=== PATIENT | female | born 1980 | race Asian ===

== ENCOUNTER 2016-10-24 09:19 | Inpatient (IN) | payer MEDICAID ==
[~2016-10-24] VITALS: Ht 152.4 cm; Wt 40.8 kg
[2016-10-24 09:23] VITALS: BP_SYST 137
[2016-10-24] MEDS ORDERED: MAG HYDROX/AL HYDROX/SIMETH 30 ML, BELLADONNA ALKALOIDS/PHENOBARB 10 ML, LIDOCAINE VISC... PO ONE ×3 (10:15)
[2016-10-24 10:23] LABS: BASOPHILS % (AUTO) 0.3 % (0.0-2.0); EOSINOPHILS % (AUTO) 0.2 % (0.0-4.0); HEMATOCRIT 41.7 % (36-48); HEMOGLOBIN 13.8 g/dL (12.0-16.0); MEAN CORPUSCULAR HEMOGLOBIN 31 pg (27-31); MEAN CORPUSCULAR HGB CONC 33 % (32-36); MEAN CORPUSCULAR VOLUME 94 fL (79.0-98.0); MONOCYTES # (AUTO) 0.8 K/uL (0.0-1.0); MONOCYTES % (AUTO) 5.5 % (1.7-9.3); NEUTROPHILS # (AUTO) 12.7 K/uL (1.8-7.7); PLATELET COUNT (AUTO) 239 K/uL (130-430); RED BLOOD CELL COUNT(AUTO) 4.46 MIL/uL (4.2-6.2); RED CELL DISTRIBUTION WIDTH 12.8 % (9.0-15.0); WHITE BLOOD COUNT (AUTO) 14.5 K/uL (4.8-10.8)
[2016-10-24 10:29] LABS: CALCIUM 8.3 mg/dL (8.4-11.0); CREATININE 0.78 mg/dL (0.55-1.30); POTASSIUM 3.2 mmol/L (3.5-5.1)
[2016-10-24 10:34] LABS: PROTHROMBIN TIME 10.9 SECS (9.5-12.5)
[2016-10-24 10:36] LABS: ALBUMIN 4.4 g/dL (3.4-4.8); TOTAL BILIRUBIN 0.5 mg/dL (0.0-1.0)
[2016-10-24 11:00] LABS: CKMB RELATIVE INDEX 3.7 (0.0-2.9); CREATINE KINASE MB 8.6 ng/mL (0-3.6)
[2016-10-24] MEDS ORDERED: ASPIRIN 81 MG TAB.CHEW PO ONE (11:00)
[2016-10-24] MEDS ORDERED: HYDROcodone/ACETAMIN 10-325 MG TAB PO ONE (11:15)
[2016-10-24 11:35] LABS: BILIRUBIN,URINE NEGATIVE (NEGATIVE); BLOOD, URINE 2+ (NEGATIVE); CLARITY/URINE CLEAR (CLEAR); COLOR,URINE YELLOW (YELLOW); GLUCOSE,URINE TRACE (NEGATIVE); KETONES,URINE TRACE (NEGATIVE); LEUKOCYTE ESTERASE ,URINE NEGATIVE (NEGATIVE); NITRITE, URINE NEGATIVE (NEGATIVE); PROTEIN URINE NEGATIVE (NEGATIVE); UROBILINOGEN,URINE 0.2 (0.2-1.0)
[2016-10-24 11:36] LABS: RBC,URINE 0-3 /HPF (0-3); WBC,URINE 0-3 /HPF (0-3)
[2016-10-24 11:37] LABS: BACTERIA,URINE MODERATE /HPF (None Seen)
[2016-10-24 11:47] VITALS: BP_SYST 134
[2016-10-24 12:05] VITALS: BP_SYST 132
[2016-10-24] MEDS: D5/0.45 NS 1,000 ML IV SCH (12:05)
[2016-10-24] MEDS: MORPHINE 2 MG/ML INJ. SYRINGE IVP PRN (14:06)
[2016-10-24] MEDS: ONDANSETRON HCL 4 MG/2 ML VIAL IVP PRN ×2 (14:06→20:44)
[2016-10-24 15:41] VITALS: BP_SYST 97
[2016-10-24 15:45] VITALS: BP_SYST 95
[2016-10-24] MEDS ORDERED: HYDROmorphone 1 MG INJ. 1 MG/ML AMPUL IM PRN (16:30)
[2016-10-24 16:51] LABS: BARBITURATE, URINE NEGATIVE (NEG <=200); BENZODIAZEPINE, URINE NEGATIVE (NEG <=150); CANNABINOID, URINE POSITIVE (NEG <=50); COCAINE, URINE NEGATIVE (NEG <=150); METHAMPHETAMINES SCREEN,URINE NEGATIVE (NEG <=500); OPIATE, URINE POSITIVE (NEG <=100); PHENCYCLIDINE SCREEN,URINE NEGATIVE (NEG <=25); UR TRICYCLIC ANTIDEPRESSANTS NEGATIVE (NEG <=300); URINE AMPHETAMINE NEGATIVE (NEG <=500); URINE METHADONE NEGATIVE (NEG <=200); URINE OXYCODONE SCREEN NEGATIVE (NEG <=100); URINE PROPOXYPHENE SCREEN NEGATIVE (NEG <=300)
[2016-10-24] MEDS: HYDROmorphone 1 MG INJ. 1 MG/ML AMPUL IV PRN (19:00)
[2016-10-24 20:57] VITALS: BP_SYST 121
[2016-10-25] VITALS (7 sets, daily range): BP systolic 96–128
[2016-10-25] MEDS: D5/0.45 NS 1,000 ML IV SCH ×3 (00:34→23:59)
[2016-10-25] MEDS: HYDROmorphone 1 MG INJ. 1 MG/ML AMPUL IV PRN ×3 (00:35→17:57)
[2016-10-25] MEDS: ONDANSETRON HCL 4 MG/2 ML VIAL IVP PRN ×2 (02:35→21:11)
[2016-10-25 07:24] LABS: BASOPHILS # (AUTO) 0.1 K/uL (0.0-0.2); BASOPHILS % (AUTO) 0.8 % (0.0-2.0); EOSINOPHILS # (AUTO) 0.3 K/uL (0.0-0.4); EOSINOPHILS % (AUTO) 3.1 % (0.0-4.0); HEMATOCRIT 37.3 % (36-48); HEMOGLOBIN 12.6 g/dL (12.0-16.0); LYMPHOCYTES # (AUTO) 1.8 K/uL (1.0-5.5); LYMPHOCYTES % (AUTO) 19.9 % (20.5-51.5); MEAN CORPUSCULAR HEMOGLOBIN 32 pg (27-31); MEAN CORPUSCULAR HGB CONC 34 % (32-36); MEAN CORPUSCULAR VOLUME 94 fL (79.0-98.0); MONOCYTES # (AUTO) 1.1 K/uL (0.0-1.0); NEUTROPHILS # (AUTO) 5.9 K/uL (1.8-7.7); NEUTROPHILS % (AUTO) 64.2 % (40.0-70.0); PLATELET COUNT (AUTO) 197 K/uL (130-430); RED BLOOD CELL COUNT(AUTO) 3.98 MIL/uL (4.2-6.2); RED CELL DISTRIBUTION WIDTH 12.8 % (9.0-15.0)
[2016-10-25 07:50] LABS: WHITE BLOOD COUNT (AUTO) 9.2 K/uL (4.8-10.8)
[2016-10-25 08:25] LABS: ALBUMIN 3.6 g/dL (3.4-4.8); CALCIUM 7.6 mg/dL (8.4-11.0); CREATININE 0.89 mg/dL (0.55-1.30); TOTAL BILIRUBIN 0.4 mg/dL (0.0-1.0)
[2016-10-25 08:48] LABS: POTASSIUM 2.8 mmol/L (3.5-5.1)
[2016-10-25] MEDS ORDERED: POTASSIUM CHLORIDE 20 MEQ TAB.PRT.SR PO ONE (09:00)
[2016-10-25] MEDS ORDERED: FAMOTIDINE 20 MG TABLET PO ONE (10:45)
[2016-10-25] MEDS: FAMOTIDINE 20 MG TABLET PO SCH (21:11)
[2016-10-26 03:51] VITALS: BP_SYST 118
[2016-10-26] MEDS: HYDROmorphone 1 MG INJ. 1 MG/ML AMPUL IV PRN ×4 (04:31→23:01)
[2016-10-26 07:00] LABS: CALCIUM 7.6 mg/dL (8.4-11.0); CREATININE 0.87 mg/dL (0.55-1.30)
[2016-10-26 07:30] LABS: POTASSIUM 2.8 mmol/L (3.5-5.1)
[2016-10-26] MEDS ORDERED: MEPERIDINE HCL/PF 100 MG/ML AMP ONE (07:36)
[2016-10-26] MEDS ORDERED: MIDAZOLAM HCL 5 MG/5 ML VIAL ONE (07:37)
[2016-10-26] MEDS ORDERED: DIPHENHYDRAMINE INJ 50 MG/ML VIAL ONE ×2 (07:37→08:45)
[2016-10-26 08:00] VITALS: BP_SYST 124
[2016-10-26] MEDS ORDERED: POTASSIUM CHLORIDE 40 MEQ in NS 250 ML IV ONE (08:00)
[2016-10-26] MEDS: D5/0.45 NS 1,000 ML IV SCH ×2 (08:10→13:30)
[2016-10-26] MEDS: MIDAZOLAM HCL 5 MG/5 ML VIAL ONE ×4 (08:49→08:55)
[2016-10-26] MEDS: FAMOTIDINE 20 MG TABLET PO SCH ×2 (09:00→21:10)
[2016-10-26 12:17] VITALS: BP_SYST 120
[2016-10-26] MEDS ORDERED: REGADENOSON 0.4 MG/5 ML SYRINGE IVP ONE (14:00)
[2016-10-26 15:00] VITALS: BP_SYST 113
[2016-10-26] MEDS: ONDANSETRON HCL 4 MG/2 ML VIAL IVP PRN (15:41)
[2016-10-26] MEDS ORDERED: FAMOTIDINE PF 20 MG/2 ML VIAL IVP ONE (16:15)
[2016-10-26 17:04] VITALS: BP_SYST 130
[2016-10-26] MEDS: MORPHINE 2 MG/ML INJ. SYRINGE IVP PRN (17:22)
[2016-10-26] MEDS ORDERED: MILK OF MAGNESIA 30 ML UDC PO ONE (17:45)
[2016-10-26 18:31] VITALS: BP_SYST 154
[2016-10-26] MEDS ORDERED: HYDROmorphone 1 MG INJ. 1 MG/ML AMPUL IVP ONE (18:45)
[2016-10-27 00:33] VITALS: BP_SYST 119
[2016-10-27] MEDS: HYDROmorphone 1 MG INJ. 1 MG/ML AMPUL IV PRN ×2 (02:57→07:00)
[2016-10-27 03:30] VITALS: BP_SYST 100
[2016-10-27 06:32] LABS: ALBUMIN 3.6 g/dL (3.4-4.8); BASOPHILS # (AUTO) 0.1 K/uL (0.0-0.2); BASOPHILS % (AUTO) 0.8 % (0.0-2.0); CREATININE 0.66 mg/dL (0.55-1.30); EOSINOPHILS # (AUTO) 0.3 K/uL (0.0-0.4); EOSINOPHILS % (AUTO) 2.3 % (0.0-4.0); HEMATOCRIT 40.5 % (36-48); HEMOGLOBIN 13.7 g/dL (12.0-16.0); LYMPHOCYTES # (AUTO) 2.8 K/uL (1.0-5.5); LYMPHOCYTES % (AUTO) 25.5 % (20.5-51.5); MEAN CORPUSCULAR HEMOGLOBIN 32 pg (27-31); MEAN CORPUSCULAR HGB CONC 34 % (32-36); MEAN CORPUSCULAR VOLUME 95 fL (79.0-98.0); MONOCYTES % (AUTO) 9.4 % (1.7-9.3); NEUTROPHILS # (AUTO) 6.8 K/uL (1.8-7.7); PLATELET COUNT (AUTO) 240 K/uL (130-430); RED BLOOD CELL COUNT(AUTO) 4.29 MIL/uL (4.2-6.2); RED CELL DISTRIBUTION WIDTH 12.6 % (9.0-15.0); TOTAL BILIRUBIN 0.4 mg/dL (0.0-1.0)
[2016-10-27 06:40] LABS: POTASSIUM 2.9 mmol/L (3.5-5.1)
[2016-10-27] MEDS ORDERED: LACTULOSE 20 GM/30 ML UDC PO ONE (07:45)
[2016-10-27] MEDS ORDERED: POTASSIUM CHLORIDE 20 MEQ TAB.PRT.SR PO ONE ×2 (07:45→11:00)
[2016-10-27 08:25] VITALS: BP_SYST 129
[2016-10-27] MEDS: FAMOTIDINE 20 MG TABLET PO SCH (09:09)
[2016-10-27] MEDS ORDERED: HYDR2TAB34 PO (11:45)
[2016-10-27] MEDS ORDERED: FAMO20TA8 PO (11:45)
[2016-10-27 11:46] VITALS: BP_SYST 119
[2016-10-27 12:28] VITALS: BP_SYST 119
== END 2016-10-27 12:05 | disposition home or self-care (01) | DRG 241 ==
LOC: SED 09:19 → STU 11:30
PROVIDERS: ADMIT Family Medicine; ATTEND Family Medicine
PROC: 0DB68ZX Excision of Stomach, Via Natural or Artificial Opening Endoscopic, Diagnostic (ICD-10-PCS; principal; 2016-10-24)
PROC: 0DB98ZX Excision of Duodenum, Via Natural or Artificial Opening Endoscopic, Diagnostic (ICD-10-PCS; 2016-10-24)
DX: K29.70 Gastritis, unspecified, without bleeding (principal); E44.0 Moderate protein-calorie malnutrition; R07.89 Other chest pain; A08.4 Viral intestinal infection, unspecified; E87.6 Hypokalemia; F12.90 Cannabis use, unspecified, uncomplicated; D72.829 Elevated white blood cell count, unspecified; K21.9 Gastro-esophageal reflux disease without esophagitis; Z87.891 Personal history of nicotine dependence; Z82.49 Family history of ischemic heart disease and other diseases of the circulatory system; E83.51 Hypocalcemia
CPT/HCPCS: 36415; 43239; 71010; 76700-TC; 80048; 80053; 80307; 81000-TC; 82150-TC; 82550-TC; 82553-TC; 83690-TC; 84484; 84703; 85025; 85379; 85610-TC; 85730-TC; 87081; 87086; 88305; 88312; 88313; 93005; 93017; 93306; 99285; A9500; J1170; J1200; J2001; J2175; J2250; J2270; J2405; J2785; J3480; J3490; J7050

== ENCOUNTER 2016-11-06 07:19 | Emergency (ER) | payer MEDICAID ==
[~2016-11-06] VITALS: Ht 152.4 cm; Wt 38.6 kg
[~2016-11-06 07:19] MED LIST: FAMO20TA8 PO; HYDR2TAB34 PO
--- NOTE | 2016-11-06 07:19 | NUR ---
Pt was brought to bed 8 with complaints of chest pain 10/ with SOB, pt states it is sharp pain in the center of the chest that does not radiate since this morning at 0400. Pt has n/v, denies fever and diarrhea. Pt was able to ambulate into the ER with no noted difficulty. Pt is able to communicate in full sentences and has o2 sat of 100% on room air. No other injuries/complaints per pt or noted.
[2016-11-06] MEDS ORDERED: NACL 0.9% 1,000 ML IV ONE ×2 (07:21→13:00)
[2016-11-06 07:23] VITALS: BP_SYST 154
[2016-11-06] MEDS ORDERED: ONDANSETRON HCL 4 MG/2 ML VIAL IVP ONE (07:30)
[2016-11-06] MEDS ORDERED: ASPIRIN 81 MG TAB.CHEW PO ONE (07:30)
[2016-11-06] MEDS ORDERED: MORPHINE 2 MG/ML INJ. SYRINGE IVP ONE (07:30)
[2016-11-06 07:42] LABS: BASOPHILS # (AUTO) 0.1 K/uL (0.0-0.2); BASOPHILS % (AUTO) 1.2 % (0.0-2.0); EOSINOPHILS # (AUTO) 0.3 K/uL (0.0-0.4); EOSINOPHILS % (AUTO) 3.7 % (0.0-4.0); HEMATOCRIT 47.5 % (36-48); HEMOGLOBIN 15.3 g/dL (12.0-16.0); LYMPHOCYTES # (AUTO) 2.5 K/uL (1.0-5.5); MEAN CORPUSCULAR HEMOGLOBIN 30 pg (27-31); MEAN CORPUSCULAR HGB CONC 32 % (32-36); MEAN CORPUSCULAR VOLUME 93 fL (79.0-98.0); MONOCYTES # (AUTO) 0.5 K/uL (0.0-1.0); MONOCYTES % (AUTO) 5.7 % (1.7-9.3); NEUTROPHILS # (AUTO) 5.5 K/uL (1.8-7.7); NEUTROPHILS % (AUTO) 61.4 % (40.0-70.0); PLATELET COUNT (AUTO) 286 K/uL (130-430); RED BLOOD CELL COUNT(AUTO) 5.11 MIL/uL (4.2-6.2); RED CELL DISTRIBUTION WIDTH 12.7 % (9.0-15.0); WHITE BLOOD COUNT (AUTO) 8.9 K/uL (4.8-10.8)
--- NOTE | 2016-11-06 07:43 | NUR ---
Pain medication and aspirin were given to the pt, no noted adverse reaction, will continue to monitor. Dr Dodson wanted the NS to be bolused, which was done.
--- NOTE | 2016-11-06 07:59 | NUR ---
RHIANNA Conklin at bedside examining patient.
[2016-11-06] MEDS ORDERED: PROCHLORPERAZINE EDISYLATE 10 MG/2 ML VIAL IVP ONE (08:00)
[2016-11-06] MEDS ORDERED: NITROGLYCERIN 0.4 MG TAB.SUBL SL ONE ×2 (08:00→08:02)
[2016-11-06] MEDS ORDERED: PANTOPRAZOLE SODIUM 40 MG/VIAL (PROTONIX) IVP ONE (08:00)
[2016-11-06] MEDS ORDERED: LORazepam 2 MG/ML VIAL (FOR ER USE) IVP ONE ×2 (08:00→11:30)
[2016-11-06 08:01] LABS: ANION GAP 14 (5-15); CALCIUM 9.7 mg/dL (8.4-11.0); CHLORIDE 104 mmol/L (98-107); CREATININE 0.95 mg/dL (0.55-1.30); GLUCOSE 138 mg/dL (70-99); POTASSIUM 3.9 mmol/L (3.5-5.1); SODIUM SERUM 143 mmol/L (136-145); UREA NITROGEN, BLOOD 10 mg/dL (8-21)
[2016-11-06 08:04] LABS: GFR AFRICAN AMERICAN 86 mL/min (>90)
--- NOTE | 2016-11-06 08:07 | NUR ---
Pt was given more nausea medication, nitro and protonix, pt tolerated well, no noted adverse reaction, will continue to monitor.
[2016-11-06 08:10] LABS: ALANINE AMINOTRANSFERASE 20 U/L (12-78); ALBUMIN 4.6 g/dL (3.4-4.8); ASPARTATE AMINOTRANSFERASE 23 U/L (10-37); TOTAL BILIRUBIN 0.4 mg/dL (0.0-1.0)
[2016-11-06 08:29] LABS: CHOLESTEROL 133 mg/dL (<200); HDL CHOLESTEROL 55 mg/dL (>55); LDL CHOLESTEROL 79 mg/dL (<100); TRIGLYCERIDES 73 mg/dL (30-150)
[2016-11-06 08:46] LABS: INR 1.1 (0.8-1.2); PROTHROMBIN TIME 11.6 SECS (9.5-12.5)
[2016-11-06] MEDS ORDERED: cloNIDine HCL 0.1 MG TABLET PO ONE (09:00)
[2016-11-06] MEDS ORDERED: HALOPERIDOL LACTATE 5 MG/ML VIAL IVP ONE (09:00)
--- NOTE | 2016-11-06 09:12 | NUR ---
Medication was given, no noted adverse reaction, will continue to monitor.
--- NOTE | 2016-11-06 09:27 | NUR ---
Pt is resting comfortably in bed with no noted distress or discomfort, states "pain is feeling better"
--- NOTE | 2016-11-06 09:58 | NUR ---
Pt ambulated to restroom steady gait. Urine specimen collected.
--- NOTE | 2016-11-06 10:10 | NUR ---
Pt went to radiology in stable condition
[2016-11-06] MEDS ORDERED: IOHEXOL 350 mgI/mL, 150 ML INFUS..BTL IV ONE (10:12)
--- NOTE | 2016-11-06 10:31 | NUR ---
Pt returned from radiology in stable condition
[2016-11-06 11:02] LABS: BARBITURATE, URINE NEGATIVE (NEG <=200); BENZODIAZEPINE, URINE NEGATIVE (NEG <=150); CANNABINOID, URINE POSITIVE (NEG <=50); COCAINE, URINE NEGATIVE (NEG <=150); METHAMPHETAMINES SCREEN,URINE NEGATIVE (NEG <=500); OPIATE, URINE POSITIVE (NEG <=100); PHENCYCLIDINE SCREEN,URINE NEGATIVE (NEG <=25); UR TRICYCLIC ANTIDEPRESSANTS NEGATIVE (NEG <=300); URINE AMPHETAMINE NEGATIVE (NEG <=500); URINE METHADONE NEGATIVE (NEG <=200); URINE OXYCODONE SCREEN NEGATIVE (NEG <=100); URINE PROPOXYPHENE SCREEN NEGATIVE (NEG <=300)
--- NOTE | 2016-11-06 11:22 | NUR ---
Pt is ambulating to the restroom in stable condition with no noted distress or discomfort.
[2016-11-06] MEDS ORDERED: traMADol HCL HCL 50 MG TABLET (ULTRAM) PO ONE (11:30)
--- NOTE | 2016-11-06 12:15 | NUR ---
Pt is resting in bed comfortably with no noted distress or discomfort. Will continue to monitor.
--- NOTE | 2016-11-06 13:10 | NUR ---
Pt is resting comfortably in bed with no noted distress or discomfort. I tried calling the pt's spouse and there was no answer, pt states that he sleeps all morning so she would call an Uber to take her home, Dr Streeter is aware and he states that is fine. Pt is getting another liter of hyrdation and then the pt may go home. Pt is aware.
--- NOTE | 2016-11-06 14:10 | NUR ---
Patient given written and verbal discharge instructions and verbalizes understanding. ER MD discussed with patient the results and treatment provided. Patient in stable condition. ID arm band removed. IV catheter removed intact and dressing applied, no active bleeding. Rx of protonix and tramadol given. Patient educated on pain management and to follow up with PMD. Pain Scale 4. Dr Streeter is aware and pain medication was given here and a prescription for home. Pt states will take medication at home. Opportunity for questions provided and answered.
[2016-11-06 14:13] VITALS: BP_SYST 154
== END 2016-11-06 14:13 | disposition home or self-care (01) ==
LOC: SED 07:19
DX: K29.50 Unspecified chronic gastritis without bleeding (principal); F11.23 Opioid dependence with withdrawal
CPT/HCPCS: 36415; 71010; 71275; 80053; 80061; 80307; 81025; 84484; 85025; 85379; 85610; 85730; 93005; 96361; 96372; 96374; 96375; 96376; 99285; C9113; J0780; J1630; J2060; J2270; J2405; J7030; Q9967

== ENCOUNTER 2016-11-08 03:10 | Emergency (ER) | payer MEDICAID ==
[~2016-11-08] VITALS: Ht 152.4 cm; Wt 48.1 kg
[2016-11-08 03:10] VITALS: BP_SYST 157
[2016-11-08] MEDS ORDERED: NACL 0.9% 1,000 ML IV ONE (04:06)
[2016-11-08] MEDS ORDERED: MAG HYDROX/AL HYDROX/SIMETH 30 ML, BELLADONNA ALKALOIDS/PHENOBARB 10 ML, LIDOCAINE VISC... PO ONE ×3 (04:15)
[2016-11-08] MEDS ORDERED: PANTOPRAZOLE SODIUM 40 MG/VIAL (PROTONIX) IVP ONE (04:15)
[2016-11-08] MEDS ORDERED: ONDANSETRON HCL 4 MG/2 ML VIAL IVP ONE (04:15)
[2016-11-08 04:28] LABS: BILIRUBIN,URINE 1+ (NEGATIVE); BLOOD, URINE 1+ (NEGATIVE); CLARITY/URINE CLOUDY (CLEAR); COLOR,URINE YELLOW (YELLOW); GLUCOSE,URINE NEGATIVE (NEGATIVE); KETONES,URINE 3+ (NEGATIVE); LEUKOCYTE ESTERASE ,URINE NEGATIVE (NEGATIVE); NITRITE, URINE NEGATIVE (NEGATIVE); PH,URINE 7.5 (5.0-8.0); PROTEIN URINE NEGATIVE (NEGATIVE); UROBILINOGEN,URINE 0.2 (0.2-1.0)
[2016-11-08 04:39] LABS: BASOPHILS # (AUTO) 0.1 K/uL (0.0-0.2); BASOPHILS % (AUTO) 0.7 % (0.0-2.0); EOSINOPHILS % (AUTO) 0.2 % (0.0-4.0); HEMATOCRIT 45.3 % (36-48); HEMOGLOBIN 14.9 g/dL (12.0-16.0); LYMPHOCYTES # (AUTO) 1.4 K/uL (1.0-5.5); LYMPHOCYTES % (AUTO) 15.6 % (20.5-51.5); MEAN CORPUSCULAR HEMOGLOBIN 30 pg (27-31); MEAN CORPUSCULAR HGB CONC 33 % (32-36); MEAN CORPUSCULAR VOLUME 93 fL (79.0-98.0); MONOCYTES # (AUTO) 0.4 K/uL (0.0-1.0); MONOCYTES % (AUTO) 4.7 % (1.7-9.3); NEUTROPHILS # (AUTO) 6.8 K/uL (1.8-7.7); NEUTROPHILS % (AUTO) 78.8 % (40.0-70.0); PLATELET COUNT (AUTO) 274 K/uL (130-430); RED BLOOD CELL COUNT(AUTO) 4.89 MIL/uL (4.2-6.2); RED CELL DISTRIBUTION WIDTH 12.5 % (9.0-15.0); WHITE BLOOD COUNT (AUTO) 8.7 K/uL (4.8-10.8)
[2016-11-08 04:44] LABS: BACTERIA,URINE FEW /HPF (None Seen); MUCUS,URINE 1+ /LPF (None Seen); URINE AMORPHOUS PHOSPHATES 2+ /HPF (None Seen)
[2016-11-08] MEDS ORDERED: MORPHINE 4 MG/ML INJ. SYRINGE IVP ONE (04:45)
[2016-11-08] MEDS ORDERED: DIPHENHYDRAMINE INJ 50 MG/ML VIAL IVP ONE (04:45)
[2016-11-08 04:54] LABS: CREATININE 0.74 mg/dL (0.55-1.30)
[2016-11-08 05:00] LABS: ALBUMIN 4.6 g/dL (3.4-4.8); TOTAL BILIRUBIN 0.4 mg/dL (0.0-1.0)
[2016-11-08 05:33] LABS: BARBITURATE, URINE NEGATIVE (NEG <=200); BENZODIAZEPINE, URINE POSITIVE (NEG <=150); CANNABINOID, URINE POSITIVE (NEG <=50); COCAINE, URINE NEGATIVE (NEG <=150); METHAMPHETAMINES SCREEN,URINE NEGATIVE (NEG <=500); OPIATE, URINE NEGATIVE (NEG <=100); PHENCYCLIDINE SCREEN,URINE NEGATIVE (NEG <=25); UR TRICYCLIC ANTIDEPRESSANTS NEGATIVE (NEG <=300); URINE AMPHETAMINE NEGATIVE (NEG <=500); URINE METHADONE NEGATIVE (NEG <=200); URINE OXYCODONE SCREEN NEGATIVE (NEG <=100); URINE PROPOXYPHENE SCREEN NEGATIVE (NEG <=300)
[2016-11-08 06:00] VITALS: BP_SYST 121
== END 2016-11-08 06:00 | disposition home or self-care (01) ==
LOC: SED 03:10
DX: K29.70 Gastritis, unspecified, without bleeding (principal); R07.89 Other chest pain
CPT/HCPCS: 36415; 71010; 80053; 80307; 81000; 83690; 84484; 85025; 93005; 96361; 96374; 96375; 99285; C9113; J1200; J2001; J2270; J2405; J7030

== ENCOUNTER 2016-11-11 20:55 | Inpatient (IN) | payer MEDICAID ==
[~2016-11-11] VITALS: Ht 152.4 cm; Wt 48.1 kg
--- NOTE | 2016-11-11 21:15 | NUR ---
Patient to ER bed 07 to gown for evaluation. Side rails up. Report given to NIECY Hernandez.
--- NOTE | 2016-11-11 21:20 | NUR ---
Patient brought in by self with son ambulated to bedside, crying and screaming. Complaining of Mid sternal chest pain starting today at 1800 constant pain of 10/10, non radiating as well as nausea and vomiting. Denies any shortness of breath or diarrhea. No other complaints/injuries per patient or as noted will continue to monitor.
--- NOTE | 2016-11-11 21:24 | NUR ---
RHIANNA Sneed at bedside examining patient.
[2016-11-11] MEDS ORDERED: DIPHENHYDRAMINE INJ 50 MG/ML VIAL IM ONE (21:30)
[2016-11-11] MEDS ORDERED: KETOROLAC TROMETHAMINE 30 MG VIAL IM ONE (21:30)
[2016-11-11] MEDS ORDERED: HALOPERIDOL LACTATE 5 MG/ML VIAL IM ONE ×2 (21:30→23:00)
[2016-11-11] MEDS ORDERED: ASPIRIN 325 MG TABLET PO ONE (21:30)
[2016-11-11] MEDS ORDERED: ONDANSETRON 4 MG ODT TAB PO ONE (21:30)
[2016-11-11 21:44] LABS: BARBITURATE, URINE POSITIVE (NEG <=200); CANNABINOID, URINE POSITIVE (NEG <=50)
[2016-11-11 21:45] LABS: BENZODIAZEPINE, URINE NEGATIVE (NEG <=150); COCAINE, URINE NEGATIVE (NEG <=150); METHAMPHETAMINES SCREEN,URINE NEGATIVE (NEG <=500); OPIATE, URINE NEGATIVE (NEG <=100); PHENCYCLIDINE SCREEN,URINE NEGATIVE (NEG <=25); UR TRICYCLIC ANTIDEPRESSANTS NEGATIVE (NEG <=300); URINE AMPHETAMINE NEGATIVE (NEG <=500); URINE METHADONE NEGATIVE (NEG <=200); URINE OXYCODONE SCREEN NEGATIVE (NEG <=100); URINE PROPOXYPHENE SCREEN NEGATIVE (NEG <=300)
[2016-11-11 21:59] LABS: BASOPHILS # (AUTO) 0.2 K/uL (0.0-0.2); EOSINOPHILS # (AUTO) 0.1 K/uL (0.0-0.4); EOSINOPHILS % (AUTO) 0.9 % (0.0-4.0); HEMATOCRIT 40.6 % (36-48); HEMOGLOBIN 13.7 g/dL (12.0-16.0); LYMPHOCYTES # (AUTO) 1.6 K/uL (1.0-5.5); LYMPHOCYTES % (AUTO) 13.4 % (20.5-51.5); MEAN CORPUSCULAR HEMOGLOBIN 31 pg (27-31); MEAN CORPUSCULAR HGB CONC 34 % (32-36); MEAN CORPUSCULAR VOLUME 93 fL (79.0-98.0); MONOCYTES # (AUTO) 0.4 K/uL (0.0-1.0); MONOCYTES % (AUTO) 3.6 % (1.7-9.3); NEUTROPHILS # (AUTO) 9.6 K/uL (1.8-7.7); NEUTROPHILS % (AUTO) 80.1 % (40.0-70.0); PLATELET COUNT (AUTO) 248 K/uL (130-430); RED BLOOD CELL COUNT(AUTO) 4.39 MIL/uL (4.2-6.2); RED CELL DISTRIBUTION WIDTH 12.4 % (9.0-15.0); WHITE BLOOD COUNT (AUTO) 11.9 K/uL (4.8-10.8)
[2016-11-11 22:03] LABS: CALCIUM 8.7 mg/dL (8.4-11.0); CREATININE 0.63 mg/dL (0.55-1.30)
--- NOTE | 2016-11-11 22:04 | NUR ---
Patient reports pain 10/10 30 minutes after administration of Toradol. No adverse reactions noted. Dr. Sneed notified. Patient screaming and crying in bed. Will continue to monitor.
[2016-11-11] MEDS ORDERED: POTASSIUM CHLORIDE 20 MEQ/PKT PACKET PO ONE (22:15)
[2016-11-11 22:18] LABS: ALBUMIN 4.1 g/dL (3.4-4.8); THYROID STIMULATING HORMONE 0.93 uIu/mL (0.34-4.82); TOTAL BILIRUBIN 0.3 mg/dL (0.0-1.0)
--- NOTE | 2016-11-11 22:32 | NUR ---
Patient complaining of pain in chest 10/[address] Sneed. Will wait for new orders.
[2016-11-11] MEDS ORDERED: traMADol HCL HCL 50 MG TABLET (ULTRAM) PO ONE (22:45)
[2016-11-11] MEDS ORDERED: MORPHINE 2 MG/ML INJ. SYRINGE IM ONE (23:15)
--- NOTE | 2016-11-11 23:39 | NUR ---
Patient awoken from asleep for assessment. Patient reports pain 10/10 60 minutes after administration of Ultram. Dr. Sneed notified. No adverse reactions noted. Will continue to monitor.
--- NOTE | 2016-11-11 23:51 | NUR ---
Patient awoken for pain assessment. Patient reports pain 10/10 30 minutes after administration of Morphine Sulfate. No adverse reactions noted. Will continue to monitor.
[2016-11-12] MEDS ORDERED: METOCLOPRAMIDE HCL 10 MG/2 ML VIAL IVP ONE (00:15)
--- NOTE | 2016-11-12 00:23 | NUR ---
Spoke to Dr. Archibald for admit orders. Dr. Archibald reports to hold admit until CT is done.
[2016-11-12] MEDS ORDERED: HYDROmorphone 1 MG INJ. 1 MG/ML AMPUL IVP ONE (00:30)
[2016-11-12] MEDS ORDERED: NACL 0.9% 1,000 ML IV ONE (00:30)
[2016-11-12] MEDS ORDERED: IOHEXOL 100 ML IV ONE (00:45)
--- NOTE | 2016-11-12 00:55 | NUR ---
Patient off unit for CT Scan.
--- NOTE | 2016-11-12 01:02 | NUR ---
Patient returned from CT Scan.
--- NOTE | 2016-11-12 02:13 | NUR ---
Patient is asleep. No acute distress noted. Vital signs within normal range.
--- NOTE | 2016-11-12 02:33 | NUR ---
Medication reconciliation completed with information provided by Patient. Any prior medication reconciliation on file was reviewed and corrected.
[2016-11-12] MEDS ORDERED: ONDANSETRON HCL 4 MG/2 ML VIAL IVP PRN (02:45)
[2016-11-12] MEDS ORDERED: MORPHINE 4 MG/ML INJ. SYRINGE IVP PRN (02:45)
--- NOTE | 2016-11-12 02:50 | NUR ---
Transfer to [facility]. IV present no sign or symptom of infiltration.
--- NOTE | 2016-11-12 02:53 | NUR ---
ADMISSION NOTE Received patient from ER via gurney. Patient admitted with diagnosis of GI UPSET. Patient is awake, alert, oriented X 4. Patient oriented to hospital room, call light, toileting, pain management and safety-teach back done. Patient informed that SHANKAR PEMBERTON will be her nurse and that their room number is 106A. Personal belongings checked and Belongings List documented. Call light reach.
--- NOTE | 2016-11-12 02:53 | NUR ---
Patient will be admitted to care of Dr. Archibald. Admitted to Medical Surgical unit. Will go to room 106 A. Belongings list completed. Summary report printed. Report will be given at bedside.
[2016-11-12 03:05] VITALS: BP_SYST 125
--- NOTE | 2016-11-12 03:19 | NUR ---
Consult Called Reason for consultation: Psych Consulting Physician: Thomas Will MD ([employer] production corrugator) Person who was notified: Erica Whyte by Dr. Archibald
[2016-11-12] MEDS: D5NS 1,000 ML IV SCH ×2 (03:25→13:54)
[2016-11-12] MEDS ORDERED: FLU VACC QS 2017-18(36MOS+)/PF 0.5 ML/SYR SYRINGE I.M. PRN (03:30)
[2016-11-12 04:01] VITALS: BP_SYST 125
--- NOTE | 2016-11-12 06:02 | NUR ---
paged paged for Dr Archibald, dialed . left a message on his voicemail.
[2016-11-12] MEDS: METOCLOPRAMIDE HCL 10 MG/2 ML VIAL IVP SCH ×3 (06:24→22:00)
--- NOTE | 2016-11-12 06:30 | NUR ---
pt.recieved via the er-dept.pt. admitting:s/s c/o chest/abdomen pain;discomfort.pt.presents stable status.i have initiated the iv fluids:via iv access;located lt.hand.pt.presents o2 room air;stable status.pt.had requested dilaudid for pain mgx. was paged. present upon the unit@[facility].i located and apprised of the pt's requests for dilaudid. conveyed to me that the will assess/discuss the issue w/ the pt.@the room.pt.presents npo dietary status.pt.has agreed to the administration flu vaccine.no requests@this hour.
[2016-11-12 07:06] LABS: BASOPHILS # (AUTO) 0.1 K/uL (0.0-0.2); BASOPHILS % (AUTO) 0.5 % (0.0-2.0); EOSINOPHILS # (AUTO) 0.1 K/uL (0.0-0.4); EOSINOPHILS % (AUTO) 0.5 % (0.0-4.0); HEMATOCRIT 39.9 % (36-48); HEMOGLOBIN 13.3 g/dL (12.0-16.0); LYMPHOCYTES % (AUTO) 15.1 % (20.5-51.5); MEAN CORPUSCULAR HEMOGLOBIN 31 pg (27-31); MEAN CORPUSCULAR HGB CONC 33 % (32-36); MEAN CORPUSCULAR VOLUME 93 fL (79.0-98.0); MONOCYTES # (AUTO) 0.6 K/uL (0.0-1.0); MONOCYTES % (AUTO) 4.9 % (1.7-9.3); NEUTROPHILS # (AUTO) 10.2 K/uL (1.8-7.7); PLATELET COUNT (AUTO) 230 K/uL (130-430); RED BLOOD CELL COUNT(AUTO) 4.28 MIL/uL (4.2-6.2); RED CELL DISTRIBUTION WIDTH 12.6 % (9.0-15.0)
--- NOTE | 2016-11-12 07:30 | NUR ---
am rounds: PATIENT SLEEPING DURING ROUNDS. IVF ON GOING AT LEFT HAND,CLEAN AND DRY. NPO INSTRUCTED.STABLE. CONTINUE TO MONITOR.
--- NOTE | 2016-11-12 07:37 | NUR ---
GI consult called: For Dr. Pelaez, regarding "int n,v," ordered by Dr. Archibald, spoke with Devorah.
[2016-11-12 07:40] LABS: ALBUMIN 3.5 g/dL (3.4-4.8); CALCIUM 8.1 mg/dL (8.4-11.0); CREATININE 0.49 mg/dL (0.55-1.30); POTASSIUM 3.5 mmol/L (3.5-5.1); TOTAL BILIRUBIN 0.3 mg/dL (0.0-1.0)
--- NOTE | 2016-11-12 08:30 | NUR ---
TOILET: PATIENT AMBULATED TO THE TOILET AND VOIDED. BACK TO HER BED.STABLE.
[2016-11-12 08:31] VITALS: BP_SYST 103
--- NOTE | 2016-11-12 10:00 | NUR ---
RN ROUNDING: PATIENT SLEEPING. NO NEEDS THIS TIME.
--- NOTE | 2016-11-12 12:21 | NUR ---
ROUNDS: PATIENT RESTING,WANTS TO STAY IN BED ,FELT DIZZY.NO PAIN MEDS GIVEN.INSTRUCTED PATIENT TO CALL WHEN GOING TO THE TOILET.CALL LIGHT WITH REACH.BED AT LOWEST POSITION AND LOCKED.
[2016-11-12 12:26] VITALS: BP_SYST 102
--- NOTE | 2016-11-12 14:25 | NUR ---
REGLAN: IV REGLAN REFUSED BY THE PATIENT. PATIENT STATED THAT SHE DOES NOT HAVE ANY NAUSEA AND VOMITING THIS TIME.
--- NOTE | 2016-11-12 16:16 | NUR ---
RN ROUNDING: RESTING. FAMILY AT BEDSIDE. NO COMPLAINED MADE.
[2016-11-12 16:40] VITALS: BP_SYST 106
--- NOTE | 2016-11-12 17:37 | NUR ---
GI ORDER: SPOKE WITH DR TRACY WITH ORDERS,PATIENT CAN HAVE FULL LIQUID DURING DINNER. CALLED [facility] AND INFORMED THE STAFF FOR NEW DIET ORDER.
--- NOTE | 2016-11-12 18:28 | NUR ---
closing notes: patient started on full liquid at dinner. no nausea and vomiting noted. continue to monitor.
[2016-11-12] MEDS: AMITRIPTYLINE HCL 10 MG TABLET (ELAVIL) PO SCH (19:00)
--- NOTE | 2016-11-12 19:53 | NUR ---
OPENING NOTES PATIENT IS A/OX 4. NO SIGNS OF DISTRESS. BREATHING IS NON LABORED. VITAL SIGNS ARE STABLE. PATIENT HAS NO COMPLAINTS OF CHEST PAIN. PATIENT REFUSED ORDERED AMITRIPYLINE HCL. PATIENT STATED THAT SHE DOESN'T WANT TO TAKE IT. PATIENT WAS EDUCATED ON THE MEDICATION AND REFUSED. BED ALARM IS ON.PATIENT INSTRUCTED TO CALL FOR ASSISTANCE. PATIENT VERBALIZED UNDERSTANDING. CALL LIGHT IS WITHIN REACH. WILL CONTINUE TO MONITOR.
--- NOTE | 2016-11-12 22:00 | NUR ---
PATIENT REFUSED MEDICATION PATIENT REFUSED 2200 REGLAN. PATIENT STATED THAT SHE DOESN'T NEED IT. PATIENT WAS EDUCATED ON THE MEDICATION. PATIENT REFUSED.
--- NOTE | 2016-11-12 22:55 | NUR ---
ROUNDS PATIENT IS IN BED SLEEPING COMFORTABLY. NO SIGNS OF DISTRESS. CALL LIGHT IS WITHIN REACH. BED ALARM IS ON. WILL CONTINUE TO MONITOR.
[2016-11-13 00:40] VITALS: BP_SYST 97
[2016-11-13] MEDS: D5NS 1,000 ML IV SCH (01:18)
--- NOTE | 2016-11-13 01:25 | NUR ---
PATIENT CARE PATIENT WAS GIVEN APPLE JUICE AND WATER. NO SIGNS OF DISTRESS. BREATHING IS NON LABORED. CALL LIGHT IS WITHIN REACH. SAFETY MEASURES ARE IN PLACE. PATIENT INSTRUCTED TO CALL FOR ASSISTANCE. PATIENT VERBALIZED UNDERSTANDING. WILL CONTINUE TO MONITOR.
--- NOTE | 2016-11-13 03:58 | NUR ---
ROUNDS PATIENT IS IN BED SLEEPING. NO SIGNS OF DISTRESS. BREATHING IS NON LABORED. CALL LIGHT IS WITHIN REACH. BED ALARM IS ON. WILL CONTINUE TO MONITOR.
[2016-11-13 04:00] VITALS: BP_SYST 92
[2016-11-13] MEDS: METOCLOPRAMIDE HCL 10 MG/2 ML VIAL IVP SCH (05:43)
--- NOTE | 2016-11-13 05:48 | NUR ---
PATIENT CARE PATIENT WAS GIVEN APPLE JUICE. PATIENT IS RESTING COMFORTABLY IN BED.
[2016-11-13] MEDS: AMITRIPTYLINE HCL 10 MG TABLET (ELAVIL) PO SCH (06:27)
--- NOTE | 2016-11-13 06:28 | NUR ---
PATIENT REFUSED MEDICATION PATIENT REFUSED SCHEDULE ELAVIL. PATIENT STATED THE SHE DOES NOT SUFFER FROM DEPRESSION OR ANXIETY. PATIENT WAS EDUCATED ON THE MEDICATION. PATIENT REFUSED.
--- NOTE | 2016-11-13 06:35 | NUR ---
GAS PAIN PATIENT STATED THAT SHE MID EPIGASTRIC PAIN. PATIENT STATED THAT SHE HASN'T PASSED GAS IN TWO DAYS. PATIENT WAS ENCOURAGED TO WALK THE UNIT. PATIENT WAS OFFERED AN ESCORT. PATIENT REFUSED. WILL GIVE PATIENT WARM TEA. PATIENT WAS ENCOURAGED TO DO BICYCLE EXERCISE IN EFFORT TO PASS GAS.
[2016-11-13 06:41] LABS: BASOPHILS % (AUTO) 0.8 % (0.0-2.0); EOSINOPHILS # (AUTO) 0.2 K/uL (0.0-0.4); EOSINOPHILS % (AUTO) 3.9 % (0.0-4.0); HEMATOCRIT 36.4 % (36-48); LYMPHOCYTES # (AUTO) 2.2 K/uL (1.0-5.5); LYMPHOCYTES % (AUTO) 38.4 % (20.5-51.5); MEAN CORPUSCULAR HEMOGLOBIN 31 pg (27-31); MEAN CORPUSCULAR HGB CONC 33 % (32-36); MEAN CORPUSCULAR VOLUME 93 fL (79.0-98.0); MONOCYTES # (AUTO) 0.6 K/uL (0.0-1.0); NEUTROPHILS # (AUTO) 2.8 K/uL (1.8-7.7); NEUTROPHILS % (AUTO) 46.9 % (40.0-70.0); PLATELET COUNT (AUTO) 215 K/uL (130-430); RED BLOOD CELL COUNT(AUTO) 3.89 MIL/uL (4.2-6.2); RED CELL DISTRIBUTION WIDTH 12.7 % (9.0-15.0); WHITE BLOOD COUNT (AUTO) 5.8 K/uL (4.8-10.8)
[2016-11-13 07:00] LABS: CALCIUM 7.7 mg/dL (8.4-11.0); CREATININE 0.49 mg/dL (0.55-1.30); POTASSIUM 3.6 mmol/L (3.5-5.1)
[2016-11-13 07:40] VITALS: BP_SYST 95
--- NOTE | 2016-11-13 07:45 | NUR ---
AM ROUNDS; PATIENT LYING ON THE BED,RESTING. VITAL SIGNS TAKEN,AFEBRILE AND STABLE. DENIES ANY PAIN. PATIENT JUST FINISHED HER BREAKFAST.NO NAUSEA AND VOMITING NOTED. CONTINUE TO OBSERVE.CALL LIGHT WITH IN REACH. BED AT LOWEST POSITION AND LOCKED.
--- NOTE | 2016-11-13 08:55 | NUR ---
AMA: PATIENT LEFT AGAINST MEDICAL ADVICE AND SIGNED THE FORM.PATIENT DOES NOT WANT TO WAIT FOR DR STODDARD,EVEN AFTER EXPLAINING TO HER.IV REMOVED BY THE PATIENT,NO BLEEDING NOTED ON THE SITE. CHARGE NURSE ROMEL ,ACCOMPANIED PATIENT TO THE LOBBY.
== END 2016-11-13 08:55 | disposition left against medical advice (07) | DRG 249 ==
LOC: SED 20:55 → SMU 11-12 02:34
PROVIDERS: ADMIT General Practice; ATTEND General Practice
DX: R11.2 Nausea with vomiting, unspecified (principal); F11.20 Opioid dependence, uncomplicated; K30 Functional dyspepsia; E87.6 Hypokalemia; F12.20 Cannabis dependence, uncomplicated; K21.9 Gastro-esophageal reflux disease without esophagitis; F41.1 Generalized anxiety disorder; F19.10 Other psychoactive substance abuse, uncomplicated; F32.9 Major depressive disorder, single episode, unspecified; Z53.21 Procedure and treatment not carried out due to patient leaving prior to being seen by health care provider; Z87.891 Personal history of nicotine dependence
CPT/HCPCS: 36415; 71010; 80048; 80053; 80307; 83690-TC; 83735-TC; 84443-TC; 84484; 85025; 85379; 87081; 96372; 96374; 99285; J1200; J1630; J1885; J2270; J2765; J7030; J7042; Q0162; Q9967

== ENCOUNTER 2016-11-13 18:38 | Emergency (ER) | payer MEDICAID ==
[~2016-11-13] VITALS: Ht 152.4 cm; Wt 48.1 kg
[2016-11-13 18:43] VITALS: BP_SYST 141
--- NOTE | 2016-11-13 18:47 | NUR ---
Pt placed to ER waiting room in stable condition.
[2016-11-13 19:34] LABS: BASOPHILS # (AUTO) 0.2 K/uL (0.0-0.2); EOSINOPHILS # (AUTO) 0.2 K/uL (0.0-0.4); EOSINOPHILS % (AUTO) 2.1 % (0.0-4.0); NEUTROPHILS # (AUTO) 8.6 K/uL (1.8-7.7)
[2016-11-13 19:38] LABS: BASOPHILS % (AUTO) 1.4 % (0.0-2.0); HEMATOCRIT 41.8 % (36-48); LYMPHOCYTES # (AUTO) 1.5 K/uL (1.0-5.5); LYMPHOCYTES % (AUTO) 13.8 % (20.5-51.5); MEAN CORPUSCULAR HEMOGLOBIN 31 pg (27-31); MEAN CORPUSCULAR HGB CONC 34 % (32-36); MEAN CORPUSCULAR VOLUME 93 fL (79.0-98.0); MONOCYTES # (AUTO) 0.6 K/uL (0.0-1.0); MONOCYTES % (AUTO) 5.4 % (1.7-9.3); NEUTROPHILS % (AUTO) 77.3 % (40.0-70.0); PLATELET COUNT (AUTO) 248 K/uL (130-430); RED BLOOD CELL COUNT(AUTO) 4.48 MIL/uL (4.2-6.2); RED CELL DISTRIBUTION WIDTH 12.5 % (9.0-15.0)
[2016-11-13 19:39] LABS: WHITE BLOOD COUNT (AUTO) 11.1 K/uL (4.8-10.8)
[2016-11-13 19:40] LABS: CREATININE 0.57 mg/dL (0.55-1.30); POTASSIUM 3.4 mmol/L (3.5-5.1)
[2016-11-13 19:45] LABS: ALBUMIN 3.9 g/dL (3.4-4.8); TOTAL BILIRUBIN 0.3 mg/dL (0.0-1.0)
--- NOTE | 2016-11-13 22:19 | NUR ---
Patient left without being seen. No further treatment provided. ER MD aware
== END 2016-11-13 22:14 | disposition left against medical advice (07) ==
LOC: SED 18:38
DX: R07.89 Other chest pain (principal); Z53.21 Procedure and treatment not carried out due to patient leaving prior to being seen by health care provider
CPT/HCPCS: 36415; 80053; 83690-TC; 85025; 99281

== ENCOUNTER 2016-11-15 17:52 | Inpatient (IN) | payer MEDICAID ==
[~2016-11-15] VITALS: Ht 152.4 cm; Wt 41.7 kg
[2016-11-15 18:05] VITALS: BP_SYST 149
[2016-11-15] MEDS ORDERED: ASPIRIN 325 MG TABLET PO ONE (19:00)
[2016-11-15 19:06] LABS: BASOPHILS % (AUTO) 0.1 % (0.0-2.0); EOSINOPHILS # (AUTO) 0.2 K/uL (0.0-0.4); EOSINOPHILS % (AUTO) 1.6 % (0.0-4.0); HEMATOCRIT 44.6 % (36-48); HEMOGLOBIN 14.6 g/dL (12.0-16.0); LYMPHOCYTES # (AUTO) 1.6 K/uL (1.0-5.5); LYMPHOCYTES % (AUTO) 11.9 % (20.5-51.5); MEAN CORPUSCULAR HEMOGLOBIN 30 pg (27-31); MEAN CORPUSCULAR HGB CONC 33 % (32-36); MEAN CORPUSCULAR VOLUME 93 fL (79.0-98.0); MONOCYTES # (AUTO) 0.7 K/uL (0.0-1.0); MONOCYTES % (AUTO) 5.4 % (1.7-9.3); PLATELET COUNT (AUTO) 271 K/uL (130-430); RED BLOOD CELL COUNT(AUTO) 4.82 MIL/uL (4.2-6.2); RED CELL DISTRIBUTION WIDTH 12.7 % (9.0-15.0); WHITE BLOOD COUNT (AUTO) 13.5 K/uL (4.8-10.8)
[2016-11-15 19:18] LABS: PROTHROMBIN TIME 10.6 SECS (9.5-12.5)
[2016-11-15 19:22] LABS: CALCIUM 9.4 mg/dL (8.4-11.0); CREATININE 0.75 mg/dL (0.55-1.30); POTASSIUM 3.4 mmol/L (3.5-5.1)
[2016-11-15 19:26] LABS: ALBUMIN 4.4 g/dL (3.4-4.8); TOTAL BILIRUBIN 0.3 mg/dL (0.0-1.0)
[2016-11-15 19:58] LABS: BARBITURATE, URINE POSITIVE (NEG <=200); BENZODIAZEPINE, URINE NEGATIVE (NEG <=150); CANNABINOID, URINE POSITIVE (NEG <=50); COCAINE, URINE NEGATIVE (NEG <=150); METHAMPHETAMINES SCREEN,URINE NEGATIVE (NEG <=500); OPIATE, URINE NEGATIVE (NEG <=100); PHENCYCLIDINE SCREEN,URINE NEGATIVE (NEG <=25); UR TRICYCLIC ANTIDEPRESSANTS NEGATIVE (NEG <=300); URINE AMPHETAMINE NEGATIVE (NEG <=500); URINE METHADONE NEGATIVE (NEG <=200); URINE OXYCODONE SCREEN NEGATIVE (NEG <=100); URINE PROPOXYPHENE SCREEN NEGATIVE (NEG <=300)
[2016-11-15] MEDS ORDERED: ONDANSETRON HCL 4 MG/2 ML VIAL IVP ONE (20:00)
[2016-11-15] MEDS ORDERED: DIPHENHYDRAMINE INJ 50 MG/ML VIAL IVP ONE (20:00)
[2016-11-15] MEDS ORDERED: MORPHINE 4 MG/ML INJ. SYRINGE IVP ONE (20:00)
[2016-11-15 20:49] VITALS: BP_SYST 156
[2016-11-15] MEDS: MORPHINE 2 MG/ML INJ. SYRINGE IVP PRN (21:00)
[2016-11-15] MEDS ORDERED: FLU VACC QS 2017-18(36MOS+)/PF 0.5 ML/SYR SYRINGE I.M. PRN (21:15)
[2016-11-16] MEDS: MORPHINE 2 MG/ML INJ. SYRINGE IVP PRN ×4 (00:36→15:55)
[2016-11-16 03:20] VITALS: BP_SYST 102
[2016-11-16 08:00] VITALS: BP_SYST 105
[2016-11-16] MEDS ORDERED: MAGNESIUM SULFATE 50 ML IV PRN (08:45)
[2016-11-16] MEDS ORDERED: ACETAMINOPHEN 325 MG TABLET PO PRN (08:45)
[2016-11-16] MEDS ORDERED: DOCUSATE SODIUM 100 MG CAPSULE PO PRN (08:45)
[2016-11-16] MEDS ORDERED: ONDANSETRON HCL 4 MG/2 ML VIAL IVP PRN (08:45)
[2016-11-16] MEDS ORDERED: POTASSIUM CHLORIDE 10 MEQ TAB.PRT.SR PO PRN (08:45)
[2016-11-16] MEDS ORDERED: LORazepam 2 MG/ML VIAL IVP PRN (08:45)
[2016-11-16] MEDS ORDERED: ZOLPIDEM TARTRATE 5 MG TABLET PO PRN (08:45)
[2016-11-16] MEDS ORDERED: MORPHINE 2 MG/ML INJ. SYRINGE IVP PRN ×2 (08:45)
[2016-11-16] MEDS ORDERED: HEPARIN SODIUM,PORCINE 5000 UNITS/ML VIAL SUBCUT SCH (09:00)
[2016-11-16] MEDS ORDERED: ENOXAPARIN SODIUM 40 MG/0.4 ML SYRINGE SUBCUT SCH (09:00)
[2016-11-16 11:24] VITALS: BP_SYST 104
[2016-11-16 16:00] VITALS: BP_SYST 95
[2016-11-16 17:12] VITALS: BP_SYST 103
== END 2016-11-16 17:55 | disposition home or self-care (01) | DRG 203 ==
LOC: SED 17:52 → STU 20:30
PROVIDERS: ADMIT General Practice; ATTEND General Practice
DX: R07.89 Other chest pain (principal); F11.20 Opioid dependence, uncomplicated; F32.9 Major depressive disorder, single episode, unspecified; F41.1 Generalized anxiety disorder; G89.4 Chronic pain syndrome; F17.210 Nicotine dependence, cigarettes, uncomplicated; F12.20 Cannabis dependence, uncomplicated; E87.6 Hypokalemia; K21.9 Gastro-esophageal reflux disease without esophagitis; D72.829 Elevated white blood cell count, unspecified; Z79.899 Other long term (current) drug therapy
CPT/HCPCS: 36415; 71010; 80053; 80061; 80307; 83690-TC; 83880; 84484; 85025; 85610-TC; 85730-TC; 87081; 93005; 96374; 96375; 99285; J1200; J1650; J2270; J2405; Q2037

== ENCOUNTER 2016-11-18 15:33 | Emergency (ER) | payer MEDICAID ==
[2016-10-26 11:58] VITALS: Ht 152.4 cm; Wt 41.7 kg
[~2016-11-18] VITALS: Ht 152.4 cm; Wt 41.7 kg
[2016-11-18 15:39] VITALS: BP 144/94; PULSE 96; RESP 19; TEMP 98.1; O2SAT 100
[2016-11-18] MEDS ORDERED: ASPIRIN 325 MG TABLET PO ONE (16:00)
[2016-11-18] MEDS ORDERED: METOCLOPRAMIDE HCL 10 MG/2 ML VIAL IVP ONE (16:15)
[2016-11-18 16:21] LABS: BASOPHILS # (AUTO) 0.1 K/uL (0.0-0.2); BASOPHILS % (AUTO) 1.1 % (0.0-2.0); EOSINOPHILS # (AUTO) 0.2 K/uL (0.0-0.4); EOSINOPHILS % (AUTO) 2.4 % (0.0-4.0); HEMATOCRIT 41.9 % (36-48); HEMOGLOBIN 13.8 g/dL (12.0-16.0); LYMPHOCYTES # (AUTO) 1.6 K/uL (1.0-5.5); LYMPHOCYTES % (AUTO) 15.2 % (20.5-51.5); MEAN CORPUSCULAR HEMOGLOBIN 31 pg (27-31); MEAN CORPUSCULAR HGB CONC 33 % (32-36); MEAN CORPUSCULAR VOLUME 93 fL (79.0-98.0); MONOCYTES # (AUTO) 0.7 K/uL (0.0-1.0); MONOCYTES % (AUTO) 6.8 % (1.7-9.3); NEUTROPHILS # (AUTO) 7.8 K/uL (1.8-7.7); NEUTROPHILS % (AUTO) 74.5 % (40.0-70.0); PLATELET COUNT (AUTO) 276 K/uL (130-430); RED BLOOD CELL COUNT(AUTO) 4.51 MIL/uL (4.2-6.2); RED CELL DISTRIBUTION WIDTH 12.8 % (9.0-15.0); WHITE BLOOD COUNT (AUTO) 10.4 K/uL (4.8-10.8)
[2016-11-18] MEDS ORDERED: MORPHINE 4 MG/ML INJ. SYRINGE IVP ONE (16:30)
[2016-11-18 16:31] LABS: CREATININE 0.65 mg/dL (0.55-1.30); POTASSIUM 3.6 mmol/L (3.5-5.1)
[2016-11-18 16:35] LABS: BILIRUBIN,URINE NEGATIVE (NEGATIVE); BLOOD, URINE NEGATIVE (NEGATIVE); COLOR,URINE YELLOW (YELLOW); GLUCOSE,URINE NEGATIVE (NEGATIVE); KETONES,URINE TRACE (NEGATIVE); LEUKOCYTE ESTERASE ,URINE NEGATIVE (NEGATIVE); NITRITE, URINE NEGATIVE (NEGATIVE); PH,URINE >=9.0 (5.0-8.0); PROTEIN URINE 1+ (NEGATIVE)
[2016-11-18 16:36] LABS: ALBUMIN 4.1 g/dL (3.4-4.8); TOTAL BILIRUBIN 0.2 mg/dL (0.0-1.0)
[2016-11-18 16:43] LABS: CLARITY/URINE HAZY (CLEAR)
[2016-11-18 16:44] LABS: BACTERIA,URINE MODERATE /HPF (None Seen); MUCUS,URINE None Seen /LPF (None Seen); RBC,URINE NONE SEEN /HPF (0-3); URINE AMORPHOUS PHOSPHATES 2+ /HPF (None Seen); WBC,URINE 0-3 /HPF (0-3)
[2016-11-18] MEDS ORDERED: DIPHENHYDRAMINE INJ 50 MG/ML VIAL IVP ONE (17:00)
[2016-11-18] MEDS ORDERED: MORPHINE 2 MG/ML INJ. SYRINGE IVP ONE (18:15)
[2016-11-18 19:10] VITALS: BP 155/98; PULSE 99; RESP 20; TEMP 98.1; O2SAT 98
== END 2016-11-18 19:10 | disposition home or self-care (01) ==
LOC: SED 15:33
DX: F41.9 Anxiety disorder, unspecified (principal); K21.9 Gastro-esophageal reflux disease without esophagitis
CPT/HCPCS: 36415; 80053; 81000; 81025; 84484; 85025; 93005; 96374; 96375; 96376; 99285; J1200; J2270 ×2; J2765

== ENCOUNTER 2018-04-18 21:46 | Emergency (ER) | payer MEDICAID ==
[~2018-04-18] VITALS: Ht 152.4 cm; Wt 49.9 kg
[2018-04-18 21:54] VITALS: BP_SYST 144
[2018-04-18] MEDS ORDERED: MORPHINE 2 MG/ML INJ. SYRINGE IVP ONE (22:45)
[2018-04-18] MEDS ORDERED: HALOPERIDOL LACTATE 5 MG/ML VIAL IVP ONE (22:45)
[2018-04-18] MEDS ORDERED: DIPHENHYDRAMINE INJ 50 MG/ML VIAL IVP ONE (22:45)
[2018-04-18] MEDS ORDERED: MORPHINE 4 MG/ML INJ. SYRINGE IVP ONE (23:15)
[2018-04-19] MEDS ORDERED: DIPHENHYDRAMINE INJ 50 MG/ML VIAL IVP ONE (00:30)
[2018-04-19] MEDS ORDERED: MORPHINE 4 MG/ML INJ. SYRINGE IVP ONE (00:30)
[2018-04-19 01:14] VITALS: BP_SYST 144
== END 2018-04-19 01:15 | disposition home or self-care (01) ==
LOC: SED 21:46
DX: R10.9 Unspecified abdominal pain (principal); R07.89 Other chest pain; K21.9 Gastro-esophageal reflux disease without esophagitis
CPT/HCPCS: 93005; 96374; 96375; 96376; 99283; J1200 ×2; J1630; J2270 ×2

== ENCOUNTER 2018-04-19 15:15 | Emergency (ER) | payer MEDICAID ==
[~2018-04-19] VITALS: Ht 152.4 cm; Wt 503.5 kg
[2018-04-19 15:22] VITALS: BP_SYST 136
[2018-04-19] MEDS ORDERED: KETOROLAC TROMETHAMINE 60 MG/2 ML VIAL IM ONE (16:00)
[2018-04-19] MEDS ORDERED: ONDANSETRON HCL 4 MG/5 ML UDC PO ONE (16:00)
[2018-04-19 16:56] VITALS: BP_SYST 136
[2018-04-20] MEDS ORDERED: OMEPRAZOLE Non-Formulary 20 MG CAPSULE.DR PO SCH (09:00)
== END 2018-04-19 16:49 | disposition home or self-care (01) ==
LOC: SED 15:15
DX: K21.9 Gastro-esophageal reflux disease without esophagitis (principal); R03.0 Elevated blood-pressure reading, without diagnosis of hypertension
CPT/HCPCS: 96372; 99283; J1885; Q0162; 93005